=== PATIENT | male | born 1980 | race Caucasian/White ===

== ENCOUNTER 2017-06-04 06:26 | Inpatient (IN) | payer BC ==
[~2017-06-04] VITALS: Ht 177.8 cm; Wt 138.9 kg
[~2017-06-04 06:26] MED LIST: BACTRIM,SEPT1 TABLET PO
[2017-06-04 07:13] LABS: MEAN PLAT.VOLUME 8.9 uM^3 (9.0-12.4); PLATELET COUNT 330 K/uL (156-360)
[2017-06-04 07:20] LABS: POTASSIUM 4.6 mEq/L (3.7-5.4)
[2017-06-04 07:36] LABS: HEMATOCRIT 52.1 % (38.0-50.0); MCH 31.3 PG (29.0-34.0); MCHC 34.2 G/DL (30.0-36.0); MCV 91.7 FL (86-99); RBC DIS.WIDTH-CV 13.3 % (11.8-14.6); RBC DIS.WIDTH-SD 45.4 % (39-53); RED BLOOD COUNT 5.68 M/uL (4.00-5.50)
[2017-06-04 07:37] LABS: WHITE BLOOD COUNT 33.6 K/uL (4.1-10.2)
[2017-06-04 07:38] LABS: ANION GAP 14 MEQ/L (2-14); CHLORIDE 96 MEQ/L (99-109); POTASSIUM 4.6 MEQ/L (3.7-5.4); SAMPLE HEMOLYSIS CHECK 0; SAMPLE ICTERIC CHECK 0; SAMPLE LIPEMIA CHECK 0; SODIUM 136 MEQ/L (136-147)
[2017-06-04 07:44] LABS: GFR ESTIMATE (CALCULATED) > 59 mL/min/; GLUCOSE 164 mg/dL (70-99); UREA NITROGEN (BUN) 19 mg/dL (9-23)
[2017-06-04 07:48] LABS: TROP-I INTERPRETATION NEGATIVE; TROPONIN-I < 0.01 ng/mL (0.0-0.30)
[2017-06-04 08:41] LABS: CREATINE KINASE 74 IU/L (1-294); LIPASE 897 U/L (1.0-51.0)
[2017-06-04 08:51] LABS: TOTAL BILIRUBIN 1.1 mg/dL (0.0-1.0)
[2017-06-04 08:52] LABS: ALKALINE PHOSPHATASE 143 IU/L (3-129)
[2017-06-04 08:55] LABS: DIRECT BILIRUBIN 0.5 mg/dL (0.0-0.3)
[2017-06-04 09:25] LABS: SERUM ETHYL ALCOHOL < 10 mg/dL
[2017-06-04 13:31] LABS: ADD MIUA? YES; BILIRUBIN NEGATIVE; BLOOD SMALL; GLUCOSE (STRIP) NEGATIVE; KETONES NEGATIVE; LEUKOCYTES NEGATIVE; NITRITE NEGATIVE; PROTEIN (STRIP) 100; UROBILINOGEN 0.2 MG/DL (0.2-1.0)
[2017-06-04 13:32] LABS: COLOR DK YELLOW ((YELLOW))
[2017-06-04 13:35] LABS: MAGNESIUM 1.6 mg/dL (1.3-2.7)
[2017-06-04 13:39] LABS: BACTERIA RARE /HPF; CALCIUM OXALATE CRYSTALS 3+ /HPF; EPITHELIAL CELLS RARE /HPF; MUCUS NONE SEEN /LPF; UCUL ADDED? NO; WHITE BLOOD CELLS 0-5 /HPF (0-5)
[2017-06-04 14:06] LABS: TROP-I INTERPRETATION NEGATIVE; TROPONIN-I < 0.01 ng/mL (0.0-0.30)
[2017-06-04 14:19] LABS: LA GHOST TEST 1
[2017-06-04 16:32] VITALS: BP 143/94
[2017-06-04 19:35] VITALS: BP 166/97
[2017-06-04 20:02] LABS: TROP-I INTERPRETATION NEGATIVE; TROPONIN-I < 0.01 ng/mL (0.0-0.30)
[2017-06-05 00:14] LABS: POINT-OF-CARE METER ID UU13113781
[2017-06-05 03:58] VITALS: BP 177/106
[2017-06-05 04:28] LABS: CHLORIDE 98 mEq/L (99-109); POTASSIUM 4.7 mEq/L (3.7-5.4); SODIUM 130 mEq/L (136-147)
[2017-06-05 04:31] LABS: ANION GAP 10 MEQ/L (2-14)
[2017-06-05 04:32] LABS: MCH 31.5 PG (29.0-34.0); MCHC 33.4 G/DL (30.0-36.0); MCV 94.3 FL (86-99); RBC DIS.WIDTH-CV 13.5 % (11.8-14.6); RBC DIS.WIDTH-SD 46.9 % (39-53); TOTAL BILIRUBIN 0.9 mg/dL (0.0-1.0); WHITE BLOOD COUNT 29.9 K/uL (4.1-10.2)
[2017-06-05 04:34] LABS: ALKALINE PHOSPHATASE 117 IU/L (3-129); GFR ESTIMATE (CALCULATED) > 59 mL/min/
[2017-06-05 04:35] LABS: UREA NITROGEN (BUN) 19 mg/dL (9-23)
[2017-06-05 04:36] LABS: DIRECT BILIRUBIN 0.5 mg/dL (0.0-0.3)
[2017-06-05 04:37] LABS: LIPASE 242 U/L (1.0-51.0)
[2017-06-05 04:51] LABS: GLUCOSE 102 mg/dL (70-99)
[2017-06-05 04:56] LABS: HDL CHOLESTEROL 32 MG/DL (Desirable>=40); LDL CHOLESTEROL 24 mg/dL (Desirable<100); NON-HDL CHOLESTEROL 61 mg/dL (Desirable<160); TOTAL CHOLESTEROL 93 mg/dL (Desirable<200); TRIGLYCERIDES 184 MG/DL (Normal: <150)
[2017-06-05 05:29] LABS: ABS NEUTROPHIL COUNT 27.4; ANISOCYTOSIS 1+; ATYPICAL LYMPHOCYTE 0.4 %; BAND NEUTROPHILS 14.4 % (0-8.0); EOSINOPHIL ABS CT 0.1; EOSINOPHILS 0.4 % (0-5.0); INSTRUMENT ABS NEUTROPHIL CT 25.7 K/uL; LYMPHOCYTES 2.2 % (15.0-45.0); MEAN PLAT.VOLUME 9.4 uM^3 (9.0-12.4); MICROCYTOSIS 1+; PLAT.SUFFICIENCY ADEQUATE; SEG.NEUTROPHILS 77.4 % (46.0-76.0); SPHEROCYTES 2+
[2017-06-05 06:00] LABS: PLATELET COUNT 205 K/uL (156-360)
[2017-06-05 06:27] LABS: POINT-OF-CARE METER ID UU13113781
[2017-06-05 07:49] VITALS: BP 145/93
[2017-06-05 09:52] LABS: RED BLOOD COUNT 4.35 M/uL (4.00-5.50)
[2017-06-05 11:38] LABS: POINT-OF-CARE METER ID UU13113781
[2017-06-05 12:10] VITALS: BP 167/100
[2017-06-05 17:01] LABS: POINT-OF-CARE METER ID UU13113781
[2017-06-05 17:16] VITALS: BP 149/71
[2017-06-05 20:32] VITALS: BP 143/92
[2017-06-05 23:40] VITALS: BP 158/74
[2017-06-06 03:48] VITALS: BP 159/88
[2017-06-06 07:10] VITALS: BP 145/76
[2017-06-06 07:25] LABS: POINT-OF-CARE METER ID UU13113698
[2017-06-06 08:19] LABS: HEMATOCRIT 35.1 % (38.0-50.0); MCH 32.5 PG (29.0-34.0); MCHC 33.6 G/DL (30.0-36.0); MCV 96.7 FL (86-99); MEAN PLAT.VOLUME 9.9 uM^3 (9.0-12.4); PLATELET COUNT 169 K/uL (156-360); RBC DIS.WIDTH-CV 13.8 % (11.8-14.6); RBC DIS.WIDTH-SD 49.4 % (39-53); RED BLOOD COUNT 3.63 M/uL (4.00-5.50); WHITE BLOOD COUNT 21.7 K/uL (4.1-10.2)
[2017-06-06 09:02] LABS: ALKALINE PHOSPHATASE 111 IU/L (3-129); ANION GAP 12 MEQ/L (2-14); CHLORIDE 98 MEQ/L (99-109); GFR ESTIMATE (CALCULATED) > 59 mL/min/; GLUCOSE 90 mg/dL (70-99); LIPASE 81 U/L (1.0-51.0); POTASSIUM 4.2 MEQ/L (3.7-5.4); SAMPLE HEMOLYSIS CHECK 0; SAMPLE ICTERIC CHECK 0; SAMPLE LIPEMIA CHECK 0; SODIUM 132 MEQ/L (136-147); TOTAL BILIRUBIN 0.6 MG/DL (0.0-1.0); UREA NITROGEN (BUN) 13 mg/dL (9-23)
[2017-06-06 11:20] VITALS: BP 150/81
[2017-06-06 13:02] LABS: POINT-OF-CARE METER ID UU13113781
[2017-06-06 15:07] VITALS: BP 158/84
[2017-06-06 20:23] VITALS: BP 147/78
[2017-06-06 23:39] VITALS: BP 165/94
[2017-06-07 03:56] VITALS: BP 135/98
[2017-06-07 05:45] LABS: HEMATOCRIT 32.4 % (38.0-50.0); MCH 31.5 PG (29.0-34.0); MCV 95.3 FL (86-99); MEAN PLAT.VOLUME 9.6 uM^3 (9.0-12.4); NRBC (%) 0.1 /100 WBC (0-0); PLATELET COUNT 183 K/uL (156-360); RBC DIS.WIDTH-CV 13.8 % (11.8-14.6); RBC DIS.WIDTH-SD 48.4 % (39-53); WHITE BLOOD COUNT 20.6 K/uL (4.1-10.2)
[2017-06-07 06:24] LABS: ANION GAP 7 MEQ/L (2-14); CHLORIDE 99 MEQ/L (99-109); GFR ESTIMATE (CALCULATED) > 59 mL/min/; GLUCOSE 113 mg/dL (70-99); POTASSIUM 3.8 MEQ/L (3.7-5.4); SAMPLE HEMOLYSIS CHECK 0; SAMPLE ICTERIC CHECK 0; SAMPLE LIPEMIA CHECK 0; SODIUM 136 MEQ/L (136-147); UREA NITROGEN (BUN) 8 mg/dL (9-23)
[2017-06-07 07:30] VITALS: BP 159/90; BP 159/94
[2017-06-07 11:45] VITALS: BP 137/82
[2017-06-07 15:00] VITALS: BP 137/82
[2017-06-07 19:48] VITALS: BP 161/81
[2017-06-07 23:53] VITALS: BP 143/91
[2017-06-08] VITALS (7 sets, daily range): BP systolic 134–152; BP diastolic 80–94
[2017-06-08 05:41] LABS: HEMATOCRIT 35.2 % (38.0-50.0); MCH 31.4 PG (29.0-34.0); MCV 95.1 FL (86-99); MEAN PLAT.VOLUME 10.8 uM^3 (9.0-12.4); NRBC (%) 0.1 /100 WBC (0-0); PLATELET COUNT 215 K/uL (156-360); RBC DIS.WIDTH-CV 13.8 % (11.8-14.6); RBC DIS.WIDTH-SD 48.3 % (39-53)
[2017-06-08 06:37] LABS: ANION GAP 11 MEQ/L (2-14); CHLORIDE 98 MEQ/L (99-109); GFR ESTIMATE (CALCULATED) > 59 mL/min/; POTASSIUM 4.4 MEQ/L (3.7-5.4); SAMPLE HEMOLYSIS CHECK 2; SAMPLE ICTERIC CHECK 0; SAMPLE LIPEMIA CHECK 0; SODIUM 137 MEQ/L (136-147); UREA NITROGEN (BUN) 10 mg/dL (9-23)
[2017-06-08 06:39] LABS: GLUCOSE 196 mg/dL (70-99)
[2017-06-09 04:10] VITALS: BP 140/92
[2017-06-09 07:27] VITALS: BP 172/102
[2017-06-09 08:30] LABS: HEMATOCRIT 37.5 % (38.0-50.0); MCH 32.3 PG (29.0-34.0); MCHC 33.9 G/DL (30.0-36.0); MCV 95.4 FL (86-99); MEAN PLAT.VOLUME 9.8 uM^3 (9.0-12.4); NRBC (%) 0.1 /100 WBC (0-0); RBC DIS.WIDTH-SD 49.3 % (39-53); RED BLOOD COUNT 3.93 M/uL (4.00-5.50)
[2017-06-09 08:31] LABS: PLATELET COUNT 367 K/uL (156-360)
[2017-06-09 08:46] LABS: ANION GAP 9 MEQ/L (2-14); CHLORIDE 99 MEQ/L (99-109); GFR ESTIMATE (CALCULATED) > 59 mL/min/; GLUCOSE 196 mg/dL (70-99); POTASSIUM 3.7 MEQ/L (3.7-5.4); SAMPLE HEMOLYSIS CHECK 0; SAMPLE ICTERIC CHECK 0; SAMPLE LIPEMIA CHECK 0; SODIUM 139 MEQ/L (136-147); UREA NITROGEN (BUN) 15 mg/dL (9-23)
[2017-06-09 11:25] VITALS: BP 131/86
[2017-06-09 16:50] VITALS: BP 140/88
[2017-06-09 19:38] VITALS: BP 137/91
[2017-06-09 23:28] VITALS: BP 159/87
[2017-06-10 06:27] LABS: HEMATOCRIT 35.2 % (38.0-50.0); MCH 31.8 PG (29.0-34.0); MCHC 33.5 G/DL (30.0-36.0); MCV 94.9 FL (86-99); MEAN PLAT.VOLUME 9.7 uM^3 (9.0-12.4); NRBC (%) 0.2 /100 WBC (0-0); PLATELET COUNT 385 K/uL (156-360); RBC DIS.WIDTH-CV 13.9 % (11.8-14.6); RED BLOOD COUNT 3.71 M/uL (4.00-5.50); WHITE BLOOD COUNT 20.5 K/uL (4.1-10.2)
[2017-06-10 06:47] LABS: ANION GAP 9 MEQ/L (2-14); CHLORIDE 98 MEQ/L (99-109); GFR ESTIMATE (CALCULATED) > 59 mL/min/; GLUCOSE 128 mg/dL (70-99); POTASSIUM 3.4 MEQ/L (3.7-5.4); SAMPLE HEMOLYSIS CHECK 0; SAMPLE ICTERIC CHECK 0; SAMPLE LIPEMIA CHECK 0; SODIUM 139 MEQ/L (136-147); UREA NITROGEN (BUN) 17 mg/dL (9-23)
[2017-06-10 08:07] VITALS: BP 160/96
[2017-06-10 10:37] VITALS: BP 151/86
[2017-06-10 15:14] VITALS: BP 140/94
[2017-06-10 20:28] VITALS: BP 155/83
[2017-06-11 00:09] VITALS: BP 139/91
[2017-06-11 03:25] VITALS: BP 168/99
[2017-06-11 06:30] LABS: HEMATOCRIT 35.1 % (38.0-50.0); MCH 32.6 PG (29.0-34.0); MCHC 34.5 G/DL (30.0-36.0); MCV 94.6 FL (86-99); MEAN PLAT.VOLUME 9.8 uM^3 (9.0-12.4); NRBC (%) 0.2 /100 WBC (0-0); PLATELET COUNT 411 K/uL (156-360); RBC DIS.WIDTH-CV 14.2 % (11.8-14.6); RBC DIS.WIDTH-SD 48.8 % (39-53); RED BLOOD COUNT 3.71 M/uL (4.00-5.50); WHITE BLOOD COUNT 22.3 K/uL (4.1-10.2)
[2017-06-11 07:00] LABS: ANION GAP 8 MEQ/L (2-14); CHLORIDE 98 MEQ/L (99-109); GFR ESTIMATE (CALCULATED) > 59 mL/min/; GLUCOSE 117 mg/dL (70-99); POTASSIUM 3.3 MEQ/L (3.7-5.4); SAMPLE HEMOLYSIS CHECK 0; SAMPLE ICTERIC CHECK 0; SAMPLE LIPEMIA CHECK 0; SODIUM 139 MEQ/L (136-147); UREA NITROGEN (BUN) 11 mg/dL (9-23)
[2017-06-11 08:00] VITALS: BP 169/90
[2017-06-11 08:47] LABS: LIPASE 170 U/L (1.0-51.0)
[2017-06-11 08:51] VITALS: BP 169/90
[2017-06-11] MEDS ORDERED: CEFTIN500 MG PO (09:11)
[2017-06-11] MEDS ORDERED: LOPRESSOR25 MG PO (09:29)
[2017-06-11] MEDS ORDERED: PREDNISONE10 MG PO (09:30)
[2017-06-11 11:40] VITALS: BP 138/81
== END 2017-06-11 13:16 | disposition home or self-care (01) | DRG 871 ==
LOC: EME 06:26 → EDOF 10:48 → 4EAST 10:48 → CANRESERV 10:51 → EDOF 10:51 → ENRESERV 10:51 → CANRESERV 10:53 → ENRESERV 10:53 → EDOF 12:55 → ENRESERV 12:56 → 4EAST 14:21 → ENRESERV 06-08 12:36 → CANRESERV 06-08 12:36 → ENRESERV 06-08 12:44 → 3EAST 06-08 14:40
PROVIDERS: Emergency Medicine; Hospitalist; Internal Medicine; Physician Assistant
DX: A41.9 Sepsis, unspecified organism (principal); R65.20 Severe sepsis without septic shock; K85.20 Alcohol induced acute pancreatitis without necrosis or infection; J96.01 Acute respiratory failure with hypoxia; J18.9 Pneumonia, unspecified organism; E86.0 Dehydration; E87.2 Acidosis; F10.239 Alcohol dependence with withdrawal, unspecified; I10 Essential (primary) hypertension; E66.9 Obesity, unspecified; Z68.41 Body mass index [BMI] 40.0-44.9, adult; Z86.14 Personal history of Methicillin resistant Staphylococcus aureus infection
CPT/HCPCS: 71010; 71275; 75635; 80047; 80048; 80053; 80061; 80076; 81003; 82550; 82948; 83605; 83690; 83735; 84484; 85025; 85027; 86850; 86900; 86901; 87040; 93005; 93306; 94640; 94640 76; 94760; 94799; 99202; 99281; 99285; C9113; G0480; J0696; J1650; J2060; J2270; J2405; J2543; J2930; J3370; J3411; J7030; J7040; J7050; J7512; S0028

== ENCOUNTER 2017-06-22 04:40 | Emergency (ER) | payer BC ==
[~2017-06-22] VITALS: Ht 177.8 cm; Wt 125.6 kg
[~2017-06-22 04:40] MED LIST changes: +CEFTIN500 MG PO; +LOPRESSOR25 MG PO; +PREDNISONE10 MG PO
[2017-06-22 05:58] LABS: CHLORIDE 99 mEq/L (99-109); POTASSIUM 4.4 mEq/L (3.7-5.4); SODIUM 140 mEq/L (136-147)
[2017-06-22 05:59] LABS: GLUCOSE 115 mg/dL (70-99)
[2017-06-22 06:01] LABS: ANION GAP 12 MEQ/L (2-14)
[2017-06-22 06:03] LABS: GFR ESTIMATE (CALCULATED) > 59 mL/min/
[2017-06-22 06:04] LABS: UREA NITROGEN (BUN) 8 mg/dL (9-23)
[2017-06-22 06:34] VITALS: BP 156/117
== END 2017-06-22 06:38 | disposition home or self-care (01) ==
LOC: EME 04:40
PROVIDERS: Emergency Medicine
DX: M79.604 Pain in right leg (principal); M79.605 Pain in left leg
CPT/HCPCS: 80048; 99281; 99283

== ENCOUNTER 2017-09-14 16:30 | Inpatient (IN) | payer BC ==
[~2017-09-14] VITALS: Ht 177.8 cm; Wt 126.5 kg
[2017-09-14 18:11] LABS: HEMATOCRIT 47.1 % (38.0-50.0); MCH 32.2 PG (29.0-34.0); MCHC 34.2 G/DL (30.0-36.0); MCV 94.2 FL (86-99); MEAN PLAT.VOLUME 9.1 uM^3 (9.0-12.4); PLATELET COUNT 331 K/uL (156-360); RBC DIS.WIDTH-CV 12.9 % (11.8-14.6); RBC DIS.WIDTH-SD 44.5 % (39-53); WHITE BLOOD COUNT 17.5 K/uL (4.1-10.2)
[2017-09-14 18:23] LABS: CHLORIDE 99 mEq/L (99-109); POTASSIUM 5.2 mEq/L (3.7-5.4); SODIUM 138 mEq/L (136-147)
[2017-09-14 18:25] LABS: GLUCOSE 128 mg/dL (70-99)
[2017-09-14 18:26] LABS: ANION GAP 12 MEQ/L (2-14)
[2017-09-14 18:27] LABS: TOTAL BILIRUBIN 0.3 mg/dL (0.0-1.0)
[2017-09-14 18:28] LABS: ALKALINE PHOSPHATASE 129 IU/L (3-129)
[2017-09-14 18:29] LABS: GFR ESTIMATE (CALCULATED) > 59 mL/min/ (58.99-99999)
[2017-09-14 18:30] LABS: UREA NITROGEN (BUN) 7 mg/dL (9-23)
[2017-09-14 18:32] LABS: LIPASE 418 U/L (1.0-51.0)
[2017-09-14 18:41] LABS: ADD MIUA? YES; BILIRUBIN NEGATIVE; BLOOD NEGATIVE; COLOR YELLOW ((YELLOW)); GLUCOSE (STRIP) NEGATIVE; KETONES NEGATIVE; LEUKOCYTES NEGATIVE; NITRITE NEGATIVE; PROTEIN (STRIP) 100; SPECIFIC GRAVITY 1.021 (1.000-1.030); UROBILINOGEN 0.2 MG/DL (0.2-1.0)
[2017-09-14 18:47] LABS: BACTERIA RARE /HPF; EPITHELIAL CELLS NONE SEEN /HPF; MUCUS TRACE /LPF; RED BLOOD CELLS 0-5 /HPF (0-5); UCUL ADDED? NO; WHITE BLOOD CELLS 0-5 /HPF (0-5)
[2017-09-14 18:59] LABS: SERUM ETHYL ALCOHOL < 10 mg/dL
[2017-09-14 23:39] LABS: MAGNESIUM 1.6 mg/dL (1.3-2.7)
[2017-09-15] VITALS (7 sets, daily range): BP systolic 105–172; BP diastolic 64–101
[2017-09-15 01:42] LABS: C-REACTIVE PROTEIN 18.2 MG/L (0-10); TRIGLYCERIDES 96 MG/DL (Normal: <150)
[2017-09-15 06:44] LABS: BASOPHIL COUNT 0.1 K/uL (0-0.1); EOSINOPHIL (%) 2.9 % (0-5); EOSINOPHIL COUNT 0.4 K/uL (0-0.3); IMMATURE GRANULOCYTE (%) 0.4 % (0.0-0.7); IMMATURE GRANULOCYTE COUNT 0.1 K/uL; INSTRUMENT ABS NEUTROPHIL CT 10.1 K/uL; LYMPHOCYTE COUNT 1.8 K/uL (1.0-2.8); MCH 30.4 PG (29.0-34.0); MEAN PLAT.VOLUME 9.1 uM^3 (9.0-12.4); MONOCYTE (%) 8.9 % (3-12); MONOCYTE COUNT 1.2 K/uL (0-0.8); NEUTROPHIL (%) 74.1 % (45-76); NEUTROPHIL COUNT 10.1 K/uL (1.8-6.4); PLATELET COUNT 262 K/uL (156-360); RBC DIS.WIDTH-CV 13.2 % (11.8-14.6); RBC DIS.WIDTH-SD 46.3 % (39-53); RED BLOOD COUNT 4.21 M/uL (4.00-5.50); WHITE BLOOD COUNT 13.7 K/uL (4.1-10.2)
[2017-09-15 07:13] LABS: ALKALINE PHOSPHATASE 103 IU/L (3-129); ANION GAP 8 MEQ/L (2-14); CHLORIDE 101 MEQ/L (99-109); GFR ESTIMATE (CALCULATED) > 59 mL/min/ (58.99-99999); GLUCOSE 101 mg/dL (70-99); POTASSIUM 4.5 MEQ/L (3.7-5.4); SAMPLE HEMOLYSIS CHECK 0; SAMPLE ICTERIC CHECK 0; SAMPLE LIPEMIA CHECK 0; SODIUM 139 MEQ/L (136-147); TOTAL BILIRUBIN 0.6 MG/DL (0.0-1.0); UREA NITROGEN (BUN) 9 mg/dL (9-23)
[2017-09-16 03:57] VITALS: BP 149/96
[2017-09-16 06:02] LABS: BASOPHIL COUNT 0.1 K/uL (0-0.1); EOSINOPHIL (%) 6.7 % (0-5); EOSINOPHIL COUNT 0.9 K/uL (0-0.3); HEMATOCRIT 38.5 % (38.0-50.0); IMMATURE GRANULOCYTE (%) 0.5 % (0.0-0.7); IMMATURE GRANULOCYTE COUNT 0.1 K/uL; LYMPHOCYTE COUNT 1.9 K/uL (1.0-2.8); MCH 31.4 PG (29.0-34.0); MCHC 33.2 G/DL (30.0-36.0); MCV 94.6 FL (86-99); MEAN PLAT.VOLUME 9.7 uM^3 (9.0-12.4); NEUTROPHIL (%) 69.2 % (45-76); PLATELET COUNT 243 K/uL (156-360); RBC DIS.WIDTH-SD 45.3 % (39-53); RED BLOOD COUNT 4.07 M/uL (4.00-5.50); WHITE BLOOD COUNT 12.9 K/uL (4.1-10.2)
[2017-09-16 06:42] LABS: ALKALINE PHOSPHATASE 111 IU/L (3-129); ANION GAP 11 MEQ/L (2-14); CHLORIDE 98 MEQ/L (99-109); GFR ESTIMATE (CALCULATED) > 59 mL/min/ (58.99-99999); GLUCOSE 77 mg/dL (70-99); LIPASE 100 U/L (1.0-51.0); POTASSIUM 4.1 MEQ/L (3.7-5.4); SAMPLE HEMOLYSIS CHECK 0; SAMPLE ICTERIC CHECK 0; SAMPLE LIPEMIA CHECK 0; SODIUM 135 MEQ/L (136-147); TOTAL BILIRUBIN 0.6 MG/DL (0.0-1.0); UREA NITROGEN (BUN) 10 mg/dL (9-23)
[2017-09-16 07:33] VITALS: BP 157/93
[2017-09-16 16:01] VITALS: BP 149/63
[2017-09-16 23:48] VITALS: BP 143/71
[2017-09-17 06:47] LABS: BASOPHIL COUNT 0.1 K/uL (0-0.1); EOSINOPHIL (%) 5.7 % (0-5); EOSINOPHIL COUNT 0.7 K/uL (0-0.3); HEMATOCRIT 38.1 % (38.0-50.0); IMMATURE GRANULOCYTE (%) 0.5 % (0.0-0.7); IMMATURE GRANULOCYTE COUNT 0.1 K/uL; INSTRUMENT ABS NEUTROPHIL CT 8.5 K/uL; LYMPHOCYTE COUNT 1.6 K/uL (1.0-2.8); MCH 31.7 PG (29.0-34.0); MCHC 33.6 G/DL (30.0-36.0); MCV 94.3 FL (86-99); MEAN PLAT.VOLUME 9.4 uM^3 (9.0-12.4); MONOCYTE (%) 7.6 % (3-12); MONOCYTE COUNT 0.9 K/uL (0-0.8); NEUTROPHIL COUNT 8.5 K/uL (1.8-6.4); PLATELET COUNT 243 K/uL (156-360); RBC DIS.WIDTH-SD 45.1 % (39-53); RED BLOOD COUNT 4.04 M/uL (4.00-5.50); WHITE BLOOD COUNT 11.8 K/uL (4.1-10.2)
[2017-09-17 07:15] LABS: ALKALINE PHOSPHATASE 106 IU/L (3-129); ANION GAP 10 MEQ/L (2-14); CHLORIDE 100 MEQ/L (99-109); GFR ESTIMATE (CALCULATED) > 59 mL/min/ (58.99-99999); GLUCOSE 94 mg/dL (70-99); LIPASE 79 U/L (1.0-51.0); POTASSIUM 4.3 MEQ/L (3.7-5.4); SAMPLE HEMOLYSIS CHECK 1; SAMPLE ICTERIC CHECK 0; SAMPLE LIPEMIA CHECK 0; SODIUM 135 MEQ/L (136-147); TOTAL BILIRUBIN 0.5 MG/DL (0.0-1.0); UREA NITROGEN (BUN) 8 mg/dL (9-23)
[2017-09-17 07:53] VITALS: BP 156/88
[2017-09-17] MEDS ORDERED: CIPRO500 MG PO (09:45)
[2017-09-17] MEDS ORDERED: LOPRESSOR25 MG PO (09:46)
[2017-09-17] MEDS ORDERED: THIAMINE HCL100 MG PO (09:46)
[2017-09-17] MEDS ORDERED: FOLIC ACID1 MG PO (09:47)
== END 2017-09-17 11:02 | disposition home or self-care (01) | DRG 439 ==
LOC: EME 16:30 → EDOF 22:12 → 5SOUTH 22:12 → ENRESERV 22:15 → 5SOUTH 09-15 00:35 → ENPENDDIS 09-17 → 5SOUTH 09-17 11:02
PROVIDERS: Hospitalist; Physician Assistant
PROC: HZ2ZZZZ Detoxification Services for Substance Abuse Treatment (ICD-10-PCS; principal; 2017-09-14)
DX: K85.21 Alcohol induced acute pancreatitis with uninfected necrosis (principal); R65.10 Systemic inflammatory response syndrome (SIRS) of non-infectious origin without acute organ dysfunction; F10.239 Alcohol dependence with withdrawal, unspecified; K70.10 Alcoholic hepatitis without ascites; I10 Essential (primary) hypertension; K76.0 Fatty (change of) liver, not elsewhere classified; E66.9 Obesity, unspecified; Z86.14 Personal history of Methicillin resistant Staphylococcus aureus infection; Z68.41 Body mass index [BMI] 40.0-44.9, adult
CPT/HCPCS: 74177; 76705; 80053; 81003; 83690; 83735; 84478; 85025; 85027; 86140; 93975; 99281; 99285; G0480; J1170; J1650; J2060; J2270; J2405; J2543; J3010; J3411; J7030; J7050; J7120; S0028

== ENCOUNTER 2017-09-28 08:05 | Emergency (ER) | payer BC ==
[~2017-09-28] VITALS: Ht 177.8 cm; Wt 126.8 kg
[~2017-09-28 08:05] MED LIST changes: +CIPRO500 MG PO; +FOLIC ACID1 MG PO; +THIAMINE HCL100 MG PO
[2017-09-28 09:46] LABS: HEMATOCRIT 46.8 % (38.0-50.0); HEMOGLOBIN 15.3 G/DL (12.5-16.6); MCH 30.6 PG (29.0-34.0); MCHC 32.7 G/DL (30.0-36.0); MCV 93.6 FL (86-99); PLATELET COUNT 369 K/uL (156-360); RBC DIS.WIDTH-CV 13.2 % (11.8-14.6); RBC DIS.WIDTH-SD 45.3 % (39-53); WHITE BLOOD COUNT 16.6 K/uL (4.1-10.2)
[2017-09-28 09:51] LABS: ALBUMIN 4.1 g/dL (3.2-4.8); CHLORIDE 98 mEq/L (99-109); POTASSIUM 4.7 mEq/L (3.7-5.4); SODIUM 140 mEq/L (136-147)
[2017-09-28 09:53] LABS: GLUCOSE 125 mg/dL (70-99); TOTAL PROTEIN 7.7 g/dL (6.4-8.3)
[2017-09-28 09:55] LABS: TOTAL BILIRUBIN 0.4 mg/dL (0.0-1.0)
[2017-09-28 09:57] LABS: ALKALINE PHOSPHATASE 133 IU/L (3-129); CREATININE 0.9 mg/dL (0.6-1.3); GFR ESTIMATE (CALCULATED) > 59 mL/min/ (58.99-99999)
[2017-09-28 09:58] LABS: UREA NITROGEN (BUN) 13 mg/dL (9-23)
[2017-09-28 09:59] LABS: AST (GOT) 69 IU/L (2-34)
[2017-09-28 10:00] LABS: ALT (GPT) 61 IU/L (3-49)
[2017-09-28 10:41] LABS: APPEARANCE CLEAR ((CLEAR)); BILIRUBIN NEGATIVE; BLOOD NEGATIVE; COLOR YELLOW ((YELLOW)); GLUCOSE (STRIP) NEGATIVE; KETONES NEGATIVE; LEUKOCYTES NEGATIVE; NITRITE NEGATIVE; PROTEIN (STRIP) 100; SPECIFIC GRAVITY 1.023 (1.000-1.030); UROBILINOGEN 0.2 MG/DL (0.2-1.0)
[2017-09-28 10:49] LABS: BACTERIA 1+ /HPF; EPITHELIAL CELLS NONE SEEN /HPF; MUCUS TRACE /LPF; RED BLOOD CELLS 0-5 /HPF (0-5); UCUL ADDED? NO; WHITE BLOOD CELLS 0-5 /HPF (0-5)
[2017-09-28 11:08] LABS: LIPASE 77 U/L (1.0-51.0)
[2017-09-28] MEDS ORDERED: PERCOCET 5/31 TABLET PO (11:46)
[2017-09-28 11:51] VITALS: BP 163/115
== END 2017-09-28 11:52 | disposition home or self-care (01) ==
LOC: EME 08:05
DX: K85.90 Acute pancreatitis without necrosis or infection, unspecified (principal); I10 Essential (primary) hypertension
CPT/HCPCS: 74176; 80053; 81003; 83690; 85027; 99281; 99284

== ENCOUNTER 2018-04-20 01:09 | Inpatient (IN) | payer BC ==
[~2018-04-20] VITALS: Ht 177.8 cm; Wt 110.8 kg
[~2018-04-20 01:09] MED LIST changes: +PERCOCET 5/31 TABLET PO
[2018-04-20 01:45] LABS: HEMATOCRIT 46.7 % (38.0-50.0); HEMOGLOBIN 16.5 G/DL (12.5-16.6); MCH 32.6 PG (29.0-34.0); MCHC 35.3 G/DL (30.0-36.0); MCV 92.3 FL (86-99); PLATELET COUNT 337 K/uL (156-360); RBC DIS.WIDTH-CV 12.7 % (11.8-14.6); RBC DIS.WIDTH-SD 42.8 % (39-53); RED BLOOD COUNT 5.06 M/uL (4.00-5.50); WHITE BLOOD COUNT 22.5 K/uL (4.1-10.2)
[2018-04-20 01:55] LABS: ALBUMIN 4.8 g/dL (3.2-4.8); CHLORIDE 96 mEq/L (99-109); POTASSIUM 4.7 mEq/L (3.7-5.4); SODIUM 139 mEq/L (136-147)
[2018-04-20 01:58] LABS: GLUCOSE 124 mg/dL (70-99); TOTAL PROTEIN 8.3 g/dL (6.4-8.3)
[2018-04-20 02:00] LABS: TOTAL BILIRUBIN 1.2 mg/dL (0.0-1.0)
[2018-04-20 02:01] LABS: ALKALINE PHOSPHATASE 169 IU/L (3-129); SERUM ETHYL ALCOHOL < 10 mg/dL
[2018-04-20 02:02] LABS: CREATININE 1.2 mg/dL (0.6-1.3); GFR ESTIMATE (CALCULATED) > 59 mL/min/ (58.99-99999)
[2018-04-20 02:03] LABS: AST (GOT) 82 IU/L (2-34); UREA NITROGEN (BUN) 18 mg/dL (9-23)
[2018-04-20 02:04] LABS: ALT (GPT) 71 IU/L (3-49)
[2018-04-20 02:05] LABS: LIPASE 198 U/L (1.0-51.0)
[2018-04-20 05:32] VITALS: BP 170/108
[2018-04-20 06:52] LABS: HEMATOCRIT 42.7 % (38.0-50.0); HEMOGLOBIN 14.7 G/DL (12.5-16.6); MCH 32.4 PG (29.0-34.0); MCHC 34.4 G/DL (30.0-36.0); MCV 94.1 FL (86-99); PLATELET COUNT 282 K/uL (156-360); RBC DIS.WIDTH-CV 12.9 % (11.8-14.6); RBC DIS.WIDTH-SD 44.4 % (39-53); RED BLOOD COUNT 4.54 M/uL (4.00-5.50)
[2018-04-20 06:57] VITALS: BP 188/113
[2018-04-20 08:34] VITALS: BP 175/104
[2018-04-20 09:36] LABS: APPEARANCE CLEAR ((CLEAR)); BILIRUBIN NEGATIVE; BLOOD NEGATIVE; COLOR YELLOW ((YELLOW)); GLUCOSE (STRIP) NEGATIVE; KETONES 80; LEUKOCYTES NEGATIVE; NITRITE NEGATIVE; PROTEIN (STRIP) 30; SPECIFIC GRAVITY 1.059 (1.000-1.030); UCUL ADDED? NO; UROBILINOGEN 0.2 MG/DL (0.2-1.0)
[2018-04-20 11:59] VITALS: BP 182/96
[2018-04-20 15:38] VITALS: BP 186/112
[2018-04-20 22:50] VITALS: BP 184/120
[2018-04-21 06:27] LABS: BASOPHIL (%) 0.2 % (0-1); BASOPHIL COUNT 0.1 K/uL (0-0.1); EOSINOPHIL (%) 0.1 % (0-5); HEMATOCRIT 39.6 % (38.0-50.0); HEMOGLOBIN 13.6 G/DL (12.5-16.6); IMMATURE GRANULOCYTE (%) 1.2 % (0.0-0.7); LYMPHOCYTE (%) 2.7 % (15-42); LYMPHOCYTE COUNT 0.6 K/uL (1.0-2.8); MCH 32.5 PG (29.0-34.0); MCHC 34.3 G/DL (30.0-36.0); MCV 94.7 FL (86-99); MONOCYTE (%) 6.6 % (3-12); MONOCYTE COUNT 1.4 K/uL (0-0.8); NEUTROPHIL (%) 89.2 % (45-76); NEUTROPHIL COUNT 19.3 K/uL (1.8-6.4); PLATELET COUNT 210 K/uL (156-360); RBC DIS.WIDTH-SD 44.9 % (39-53); RED BLOOD COUNT 4.18 M/uL (4.00-5.50); WHITE BLOOD COUNT 21.7 K/uL (4.1-10.2)
[2018-04-21 06:49] LABS: ALBUMIN 3.6 G/DL (3.2-4.8); ALKALINE PHOSPHATASE 131 IU/L (3-129); ALT (GPT) 25 IU/L (3-49); AMYLASE 43 IU/L (1-118); AST (GOT) 20 IU/L (2-34); CHLORIDE 96 MEQ/L (99-109); CREATININE 0.9 MG/DL (0.6-1.3); DIRECT BILIRUBIN 0.7 mg/dL (0.0-0.3); GFR ESTIMATE (CALCULATED) > 59 mL/min/ (58.99-99999); GLUCOSE 152 mg/dL (70-99); LIPASE 148 U/L (1.0-51.0); POTASSIUM 4.1 MEQ/L (3.7-5.4); SODIUM 137 MEQ/L (136-147); TOTAL BILIRUBIN 1.4 MG/DL (0.0-1.0); TOTAL PROTEIN 5.9 G/DL (6.4-8.3); UREA NITROGEN (BUN) 11 mg/dL (9-23)
[2018-04-21 06:51] VITALS: BP 180/110
[2018-04-21 09:06] VITALS: BP 155/85
[2018-04-21 10:43] VITALS: BP 160/110
[2018-04-21 15:25] VITALS: BP 170/86
[2018-04-21 19:35] VITALS: BP 122/84
[2018-04-21 23:18] VITALS: BP 162/89
[2018-04-22 04:41] VITALS: BP 160/90
[2018-04-22 06:44] LABS: BASOPHIL (%) 0.3 % (0-1); BASOPHIL COUNT 0.1 K/uL (0-0.1); EOSINOPHIL (%) 0.6 % (0-5); EOSINOPHIL COUNT 0.1 K/uL (0-0.3); HEMATOCRIT 38.3 % (38.0-50.0); HEMOGLOBIN 13.2 G/DL (12.5-16.6); IMMATURE GRANULOCYTE (%) 0.8 % (0.0-0.7); LYMPHOCYTE COUNT 1.1 K/uL (1.0-2.8); MCH 32.7 PG (29.0-34.0); MCHC 34.5 G/DL (30.0-36.0); MCV 94.8 FL (86-99); MONOCYTE (%) 7.3 % (3-12); MONOCYTE COUNT 1.6 K/uL (0-0.8); NEUTROPHIL COUNT 18.4 K/uL (1.8-6.4); PLATELET COUNT 188 K/uL (156-360); RBC DIS.WIDTH-CV 12.8 % (11.8-14.6); RBC DIS.WIDTH-SD 44.6 % (39-53); RED BLOOD COUNT 4.04 M/uL (4.00-5.50); WHITE BLOOD COUNT 21.3 K/uL (4.1-10.2)
[2018-04-22 07:12] LABS: CHLORIDE 98 MEQ/L (99-109); CREATININE 0.8 MG/DL (0.6-1.3); GFR ESTIMATE (CALCULATED) > 59 mL/min/ (58.99-99999); GLUCOSE 125 mg/dL (70-99); LIPASE 40 U/L (1.0-51.0); POTASSIUM 3.7 MEQ/L (3.7-5.4); SODIUM 139 MEQ/L (136-147); UREA NITROGEN (BUN) 11 mg/dL (9-23)
[2018-04-22 07:35] VITALS: BP 164/90
[2018-04-22 11:32] VITALS: BP 170/100
[2018-04-22 15:17] VITALS: BP 176/98
[2018-04-22 19:24] VITALS: BP 168/96
[2018-04-22 22:34] VITALS: BP 162/98
[2018-04-23 04:20] VITALS: BP 150/89
[2018-04-23 06:41] LABS: BASOPHIL (%) 0.4 % (0-1); BASOPHIL COUNT 0.1 K/uL (0-0.1); EOSINOPHIL (%) 2.6 % (0-5); EOSINOPHIL COUNT 0.6 K/uL (0-0.3); HEMATOCRIT 37.9 % (38.0-50.0); HEMOGLOBIN 12.6 G/DL (12.5-16.6); IMMATURE GRANULOCYTE (%) 0.9 % (0.0-0.7); LYMPHOCYTE (%) 6.8 % (15-42); LYMPHOCYTE COUNT 1.5 K/uL (1.0-2.8); MCH 31.7 PG (29.0-34.0); MCHC 33.2 G/DL (30.0-36.0); MCV 95.2 FL (86-99); MONOCYTE (%) 7.5 % (3-12); MONOCYTE COUNT 1.6 K/uL (0-0.8); NEUTROPHIL (%) 81.8 % (45-76); NEUTROPHIL COUNT 17.5 K/uL (1.8-6.4); PLATELET COUNT 243 K/uL (156-360); RBC DIS.WIDTH-CV 12.8 % (11.8-14.6); RBC DIS.WIDTH-SD 44.7 % (39-53); RED BLOOD COUNT 3.98 M/uL (4.00-5.50); WHITE BLOOD COUNT 21.4 K/uL (4.1-10.2)
[2018-04-23 07:02] LABS: CHLORIDE 98 MEQ/L (99-109); CREATININE 0.6 MG/DL (0.6-1.3); GFR ESTIMATE (CALCULATED) > 59 mL/min/ (58.99-99999); GLUCOSE 108 mg/dL (70-99); POTASSIUM 4.3 MEQ/L (3.7-5.4); SODIUM 138 MEQ/L (136-147); UREA NITROGEN (BUN) 9 mg/dL (9-23)
[2018-04-23 07:40] VITALS: BP 158/76
[2018-04-23 09:13] LABS: LIPASE 27 U/L (1.0-51.0)
[2018-04-23 11:40] VITALS: BP 172/82
[2018-04-23 16:15] VITALS: BP 166/82
[2018-04-23 19:13] VITALS: BP 138/92
[2018-04-24 07:15] VITALS: BP 150/118
[2018-04-24 08:50] LABS: HEMATOCRIT 34.9 % (38.0-50.0); MCH 32.5 PG (29.0-34.0); MCHC 34.4 G/DL (30.0-36.0); MCV 94.6 FL (86-99); PLATELET COUNT 229 K/uL (156-360); RBC DIS.WIDTH-CV 12.7 % (11.8-14.6); RBC DIS.WIDTH-SD 44.1 % (39-53); RED BLOOD COUNT 3.69 M/uL (4.00-5.50)
[2018-04-24 11:56] LABS: C DIFF TOXIN POSITIVE (NEGATIVE)
[2018-04-24 15:27] VITALS: BP 142/100
[2018-04-24 22:00] VITALS: BP 150/100
[2018-04-24 23:45] VITALS: BP 133/90; BP 144/90
[2018-04-25 07:16] VITALS: BP 138/76
[2018-04-25] MEDS ORDERED: VANCOCIN HCL125 MG PO (10:45)
== END 2018-04-25 14:13 | disposition home or self-care (01) | DRG 439 ==
LOC: EME 01:09 → 5EAST 03:54 → EDOF 03:54 → ENRESERV 03:56 → 5EAST 05:09
PROVIDERS: Hospitalist; Internal Medicine Gastroenterology
DX: K85.20 Alcohol induced acute pancreatitis without necrosis or infection (principal); K86.0 Alcohol-induced chronic pancreatitis; F10.239 Alcohol dependence with withdrawal, unspecified; B95.2 Enterococcus as the cause of diseases classified elsewhere; I10 Essential (primary) hypertension; E87.2 Acidosis; E66.9 Obesity, unspecified; K59.00 Constipation, unspecified; K76.0 Fatty (change of) liver, not elsewhere classified; Z68.35 Body mass index [BMI] 35.0-35.9, adult; Z79.899 Other long term (current) drug therapy
CPT/HCPCS: 74177; 76705; 80048; 80053; 80076; 81003; 82150; 83605; 83690; 83735; 85025; 85027; 87040; 87077; 87177; 87186; 87329; 87493; 87801; 99281; 99285; G0480; J0295; J1170; J1200; J1650; J2270; J2405; J2543; J2765; J7030; J7042; J7050; S0028